=== PATIENT | female | born 1985 | race Caucasian/White ===

== ENCOUNTER 2023-01-25 09:23 | Outpatient (AMB) | payer OTHER, SELFPAY ==
[2023-01-25 09:41] VITALS: BP 122/80; PULSE 77; TEMP 36.4; O2SAT 97
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
== END 2023-01-25 10:32 | disposition home or self-care (01) ==
PROVIDERS: PCP Internal Medicine; Visit Provider Physician Assistant Medical
DX: S13.4XXA Sprain of ligaments of cervical spine, initial encounter (principal); S16.1XXA Strain of muscle, fascia and tendon at neck level, initial encounter; S39.012A Strain of muscle, fascia and tendon of lower back, initial encounter
CPT/HCPCS: 99213

== ENCOUNTER 2024-03-09 09:45 | Outpatient (AMB) | payer OTHER, SELFPAY ==
[2024-03-09 09:46] VITALS: BP 122/84; PULSE 89; O2SAT 99; BMI 37.7
--- NOTE | 2024-03-09 09:46 | A.OFFPC_ITS ---
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 Accompanied by: Self / Same As Patient Allergies No Known Allergies Allergy (Verified 03/10/24 05:30) Medication List - Last Reconciled 03/10/24 by Dov Caldera MD lidocaine 5% 2 patches topical DAILY meloxicam 15 mg PO DAILY pantoprazole 40 mg PO DAILY Tobacco use date assessed: 03/09/24 Dental Screening Dental Screen Date: 03/09/24 Did you have a dental visit in the last 12 months?: No Did you have a dental problem in the last 6 months where you did not have access to dental care?: No Was dental information given to patient?: No HPI PE HPI Details 38-year-old female presents to the [facility] e requesting an annual physical. Patient has issues with obesity, which is causing baseline anxiety. Her weight fluctuates due to her eating habits. Not exercising. 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 [facility] Medical History Class 2 severe obesity with body mass index (BMI) of 35 to 39.9 with serious comorbidity Family History Mother Hypertension Maternal Grandfather Lung cancer Social History Household Members: Family Housing: House Alcohol intake: current Alcohol intake frequency: other Alcohol type: wine Patient Tobacco Use Status: Never used Tobacco Tobacco use type: Cigarette e-Cigarette/Vaping Use: Never Used Substance Use Type: Marijuana service: No Current occupational status: employed Current occupational exposures/hazards: No Cognitive needs: No Hearing needs: No Vision needs: No Questionnaire PHQ-9 Over the last 2 weeks, how often have you been bothered by any of the following problems? 1. Little interest or pleasure in doing things: not at all 2. Feeling down, depressed, or hopeless: several days 3. Trouble falling or staying asleep, or sleeping too much: not at all 4. Feeling tired or having little energy: not at all 5. Poor appetite or overeating: not at all 6. Feeling bad about yourself - or that you are a failure or have let yourself or your family down: not at all 7. Trouble concentrating on things, such as reading the newspaper or watching television: not at all 8. Moving or speaking so slowly that other people could have noticed. Or the opposite - being so fidgety or restless that you have been moving around a lot more than usual: not at all 9. Thoughts that you would be better off or of hurting yourself in some way: not at all Total score: 1 Depression Screening Interpretation: Negative Depression Screening Done: Yes 49488 - PHQ-9 Billing: Yes Source: Developed by Drs. Haresh Singh, Anne Wiley, Christopher Nix and colleagues, with an educational tom from [employer]. Thrive Questionnaire Date Thrive assessed: 03/09/24 I am a: Patient What is your living situation today?: I have a steady place to live Within the past 12 months, did the food you bought not last and you didn't have the money to get more?: Never true Within the past 12 months, did you worry whether your food would run out before you got money to buy more?: Never true Do you have trouble paying for medicines?: No Do you have trouble getting transportation to medical appointments?: No Do you have trouble paying your heating and electricity bill?: No Do you have trouble taking care of your child, family member or friend?: No Do you have trouble with day-to-day activities such as bathing, preparing meals, shopping, managing finances, etc.?: No Are you currently unemployed and looking for a job?: No Are you interested in more education?: No Please select the resources that you would like help with: None Currently or been in a relationship where the following occur: No concerns reported THRIVE Score: 0 AUDIT C Alcohol Use Questionnaire (AUDIT-C) 1. How often do you have a drink containing alcohol?: Monthly or less 2. How many drinks containing alcohol do you have on a typical day when you are drinking?: 1 or 2 3. How often do you have six or more drinks on one occasion?: Never Total Score: 1 KATHERINE-7 AMB Questionnaire KATHERINE-7 Date KATHERINE - 7 assessed: 03/09/24 Feeling nervous, anxious, or on edge: 1 = Several days Not being able to stop or control worryin = Several days Worrying too much about different things: 1 = Several days Trouble relaxin = Several days Being so restless that it is hard to sit still: 1 = Several days Becoming easily annoyed or irritable: 1 = Several days Feeling afraid as if something awful might happen: 0 = Not at all Total KATHERINE-7 score (0-4 normal; 5-9 mild; 10-14 moderate; 15-21 severe): 6 Source: Developed by Drs. Haresh Singh, Anne Wiley, Christopher Nix and colleagues, with an educational tom from [employer]. KATHERINE-7 Assessment Billing KATHERINE-7 Assessment Tool: KATHERINE-7 Assessment 39555 Physical exam (Primary Care) Vital Signs: Last Vital Signs Pulse 89 03/09/24 09:46 BP 122/84 03/09/24 09:46 Pulse Ox 99 03/09/24 09:46 Oxygen Delivery Method Room Air 03/09/24 09:46 Care Plan Goal for BP management: Blood pressure is in range. BMI result Body Mass Index 37.7 BMI Assessment/Plan discussion: High (1 lb per week weight loss suggested.) BMI High, discussed plan: lifestyle, weight reduction and dietary Tobacco/Smoking Status: Tobacco use Status Tobacco use date assessed 03/09/24 03/09/24 09:54 Patient Tobacco Use Status Never used Tobacco 03/09/24 09:54 Tobacco use type Cigarette 03/09/24 09:54 e-Cigarette/Vaping Use Never Used 03/09/24 09:54 PHQ-9: PHQ-9 Score PHQ-9: Total score 1 03/09/24 10:29 Depression Screening Interpretation: Negative Thrive Assessment: Date of Thrive Assessment Date Thrive assessed 03/09/24 03/09/24 09:54 Currently or been in a relationship where the following occur: No concerns reported Const General: cooperative and healthy appearing Nutritional Appearance: well nourished Orientation/consciousness: patient oriented x3 Limitations: no limitations HENMT Head: Yes normal to inspection Eyes General: appearance normal, both eyes and all related structures Neck Neck: Yes normal visual inspection Chest Chest palpation & inspection: normal palpation of entire chest wall Resp Effort & Inspection: normal respiratory effort Neuro General: patient oriented x3 Assessment and Plan Assessment & Plan (1) Migraines: Code(s): G43.909 - Migraine, unspecified, not intractable, without status migrainosus Plan: Meloxicam called in. If headache symptoms do not subside with meloxicam, triptans will be considered. (2) Physical exam, annual: Code(s): Z00.00 - Encounter for general adult medical examination without abnormal findings Plan: Blood work has been ordered. Will call the results. (3) Class 2 severe obesity with body mass index (BMI) of 35 to 39.9 with serious comorbidity: Code(s): E66.01 - Morbid (severe) obesity due to excess calories Plan: Patient was counseled on the importance of regular exercise, low-fat diet. She was advised to restrict the amount of carbohydrates she is consuming. Medications: New meloxicam 15 mg PO DAILY 14 tabs 0RF Coding Level of Care Code Est Pt Prev Care 18-39y(46421) Diagnoses Migraines G43.909 Physical exam, annual Z00.00 Class 2 severe obesity with body mass index (BMI) of 35 to 39.9 with serious comorbidity E66.01 Additional Codes KATHERINE-7 Assessment Billing - KATHERINE-7 Assessment Tool: KATHERINE-7 Assessment [id number] ([id number])
== END 2024-03-09 10:19 | disposition home or self-care (01) ==
PROVIDERS: PCP Internal Medicine; Visit Provider Internal Medicine
DX: Z00.00 Encounter for general adult medical examination without abnormal findings (principal); G43.909 Migraine, unspecified, not intractable, without status migrainosus; E66.01 Morbid (severe) obesity due to excess calories; Z68.37 Body mass index [BMI] 37.0-37.9, adult
CPT/HCPCS: 99395

== ENCOUNTER 2024-04-02 08:40 | Outpatient (REF) | payer OTHER, SELFPAY ==
[2024-04-02 09:22] LABS: Hematocrit 41.3 % (37.0-47.0); Hemoglobin 13.7 g/dl (12.0-16.0); Mean Corpuscular HGB Conc 33.2 g/dl (31.0-35.0); Mean Corpuscular Hemoglobin 28.8 pg (27.0-33.0); Mean Corpuscular Volume 86.9 fL (80.0-98.0); Mean Platelet Volume 11.8 fL (9.4-12.3); Platelet Count 207 X10*3/uL (160-400); Red Blood Count 4.75 X10*6/uL (4.20-5.50); Red Cell Distribution Width 12.3 % (11.0-16.0); White Blood Count 8.2 X10*3/uL (4.8-10.8)
[2024-04-02 09:50] LABS: Appearance Urine Clear; Color Urine Yellow; Glucose Urine UA Negative (Negative); Leukocyte Esterase Urine Trace (Negative); Nitrite Urine Negative (Negative); Specific Gravity - Urine 1.025 (1.005-1.025); UMIC TRIGGER UA YES; Urine Blood Negative (Negative); Urine Ketones Negative (Negative); Urine Protein Trace mg/dL (Neg-Trace)
[2024-04-02 10:02] LABS: Erythrocyte Sedimentation Rate 8 MM/HR (0-20)
[2024-04-02 10:09] LABS: Bacteria Urine 1+ (None Seen); Hyaline Casts Urine 0-2 /LPF (0-2); RBC Urine 0-2 /HPF (0-2); WBC Urine 0-5 /HPF (0-5)
[2024-04-02 10:19] LABS: Alanine Aminotransferase 15 U/L (0-31); Albumin Level 4.4 g/dL (3.5-5.0); Alkaline Phosphatase 65 U/L (39-117); Anion Gap 11 (12-20); Aspartate Amino Transferase 12 U/L (5-31); Bilirubin Direct 0.2 mg/dL (0.0-0.5); Bilirubin Total 0.8 mg/dL (0.0-1.0); Blood Urea Nitrogen 12 mg/dL (9-16); Calcium 9.2 mg/dL (8.4-10.2); Carbon Dioxide 26 mmol/L (22-29); Chloride 107 mmol/L (96-108); Cholesterol 188 mg/dL (<200); Estimated Glomerular Filt Rate > 60; Glucose Random 99 mg/dL (60-115); HDL Cholesterol 35 mg/dL (>40); LDL Cholesterol Calculated 106 mg/dL (<100); Potassium 3.8 mmol/L (3.3-5.1); Sodium 140 mmol/L (135-145); Total Protein 7.8 g/dL (6.5-8.0); Triglycerides 238 mg/dL (<150)
[2024-04-02 10:39] LABS: Thyroid Stimulating Hormone 1.08 uIU/mL (0.32-4.0)
== END 2024-04-02 08:41 | disposition home or self-care (01) ==
LOC: HO.LAB 08:40
PROVIDERS: PCP Internal Medicine; Visit Provider Internal Medicine
DX: K21.9 Gastro-esophageal reflux disease without esophagitis (principal); G43.909 Migraine, unspecified, not intractable, without status migrainosus
CPT/HCPCS: 36415; 80048; 80061; 80076; 81001; 84443; 85027; 85652

== ENCOUNTER 2024-10-15 13:08 | Outpatient (AMB) | payer OTHER, SELFPAY ==
--- NOTE | 2024-10-15 13:23 | MHC.PC.OV ---
Vital Signs 10/15/24 13:27 Height 5 ft 7 in Weight 251 lb 4 oz BMI 39.3 BP 132/86 Blood Pressure Location Lt brachial Position Sitting Pulse 83 Pulse Source Pulse Oximeter Temp 97.1 F Temp Source Temporal Artery Scan Pulse Oximetry (%) 94 Oxygen Delivery Method Room Air Intake Visit Reasons: pain underneath ribs Intake Note: Patient is here to follow up on Pain underneath left ribs area. 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: Not Required per policy Accompanied by: Self / Same As Patient Allergies No Known Allergies Allergy (Verified 10/15/24 13:53) Medication List - Last Reconciled 10/15/24 by Patricia Huggins PA-C amoxicillin-pot clavulanate 875-125 mg 1 tab PO BID 10 days lidocaine 5% 2 patches topical DAILY meloxicam 15 mg PO DAILY metformin ER 500 mg PO DAILY pantoprazole 40 mg PO DAILY prednisone 40 mg (2 x 20 mg) PO DAILY 5 days sumatriptan succinate (Imitrex) take 1 tab at onset of headache; if no relief may repeat 1 tab after at least 2 hrs; max = 4 tabs/24 hr PO Tobacco use date assessed: 10/15/24 Dental Screening Dental Screen Date: 10/15/24 Did you have a dental visit in the last 12 months?: No Did you have a dental problem in the last 6 months where you did not have access to dental care?: No Was dental information given to patient?: No PFSH Medical History Chest wall pain Headache Abdominal pain Class 2 severe obesity with body mass index (BMI) of 35 to 39.9 with serious comorbidity Surgical History No pertinent past surgical history Family History Mother Hypertension Maternal Grandfather Lung cancer Social History Household Members: Family Housing: House Alcohol intake: current Alcohol intake frequency: other Alcohol type: wine Patient Tobacco Use Status: Never used Tobacco Tobacco use type: Cigarette e-Cigarette/Vaping Use: Never Used Second Hand Smoke Exposure: Yes Substance Use Type: Marijuana service: No Current occupational status: employed Current occupational exposures/hazards: No Cognitive needs: No Hearing needs: No Vision needs: No Questionnaire PHQ-9 Over the last 2 weeks, how often have you been bothered by any of the following problems? 1. Little interest or pleasure in doing things: not at all 2. Feeling down, depressed, or hopeless: not at all 3. Trouble falling or staying asleep, or sleeping too much: not at all 4. Feeling tired or having little energy: not at all 5. Poor appetite or overeating: not at all 6. Feeling bad about yourself - or that you are a failure or have let yourself or your family down: not at all 7. Trouble concentrating on things, such as reading the newspaper or watching television: not at all 8. Moving or speaking so slowly that other people could have noticed. Or the opposite - being so fidgety or restless that you have been moving around a lot more than usual: not at all 9. Thoughts that you would be better off or of hurting yourself in some way: not at all Total score: 0 Depression Screening Interpretation: Negative Depression Screening Done: Yes 35558 - PHQ-9 Billing: Yes Source: Developed by Drs. Haresh Singh, Anne Wiley, Christopher Nix and colleagues, with an educational tom from [employer]. Thrive Questionnaire Date Thrive assessed: 10/15/24 I am a: Patient What is your living situation today?: I have a steady place to live Within the past 12 months, did the food you bought not last and you didn't have the money to get more?: Never true Within the past 12 months, did you worry whether your food would run out before you got money to buy more?: Never true Do you have trouble paying for medicines?: No Do you have trouble getting transportation to medical appointments?: No Do you have trouble paying your heating and electricity bill?: No Do you have trouble taking care of your child, family member or friend?: No Do you have trouble with day-to-day activities such as bathing, preparing meals, shopping, managing finances, etc.?: No Are you currently unemployed and looking for a job?: No Are you interested in more education?: No Please select the resources that you would like help with: None Currently or been in a relationship where the following occur: No concerns reported THRIVE Score: 0 AUDIT C Alcohol Use Questionnaire (AUDIT-C) 1. How often do you have a drink containing alcohol?: Monthly or less 2. How many drinks containing alcohol do you have on a typical day when you are drinking?: 1 or 2 Total Score: 1 Score Reviewed/Action Taken: No KATHERINE-7 AMB Questionnaire KATHERINE-7 Date KATHERINE - 7 assessed: 10/15/24 Feeling nervous, anxious, or on edge: 0 = Not at all Not being able to stop or control worryin = Not at all Worrying too much about different things: 0 = Not at all Trouble relaxin = Not at all Being so restless that it is hard to sit still: 0 = Not at all Becoming easily annoyed or irritable: 0 = Not at all Feeling afraid as if something awful might happen: 0 = Not at all Total KATHERINE-7 score (0-4 normal; 5-9 mild; 10-14 moderate; 15-21 severe): 0 Source: Developed by Drs. Haresh Singh, Anen Wiley, Christopher Nix and colleagues, with an educational tom from [employer]. KATHERINE-7 Assessment Billing KATHERINE-7 Assessment Tool: KATHERINE-7 Assessment 89519 Physical exam (Primary Care) Vital Signs: Last Vital Signs Temp 97.1 F 10/15/24 13:27 Pulse 83 10/15/24 13:27 BP 132/86 10/15/24 13:27 Pulse Ox 94 10/15/24 13:27 Oxygen Delivery Method Room Air 10/15/24 13:27 Care Plan Goal for BP management: <130/80 at Goal BMI result Body Mass Index 39.3 BMI Assessment/Plan discussion: High BMI High, discussed plan: lifestyle, weight reduction, dietary, physical activity and alcohol moderation Tobacco/Smoking Status: Tobacco use Status Tobacco use date assessed 10/15/24 10/15/24 13:32 Patient Tobacco Use Status Never used Tobacco 10/15/24 13:24 Tobacco use type Cigarette 10/15/24 13:24 e-Cigarette/Vaping Use Never Used 10/15/24 13:24 PHQ-9: PHQ-9 Score PHQ-9: Total score 0 10/15/24 13:32 Depression Screening Interpretation: Negative Thrive Assessment: Date of Thrive Assessment Date Thrive assessed 10/15/24 10/15/24 13:32 Currently or been in a relationship where the following occur: No concerns reported Coding Level of Care Code Est Pt Level 4 (81105) Complex EM visit Add On G2211 Diagnoses Abdominal pain R10.9 Chest wall pain R07.89 Migraines G43.909 Class 2 severe obesity with body mass index (BMI) of 35 to 39.9 with serious comorbidity E66.01 Additional Codes PHQ-9 - 23020 - PHQ-9 Billing: Yes ([id number]) KATHERINE-7 Assessment Billing - KATHERINE-7 Assessment Tool: KATHERINE-7 Assessment 83631 ([id number]) Assessment & Plan Assessment & Plan (1) Abdominal pain: Code(s): R10.9 - Unspecified abdominal pain Category: Medical Plan: Initiate with blood work, abdominal ultrasound, and CT scan ordered at this time. (2) Chest wall pain: Code(s): R07.89 - Other chest pain Category: Medical Plan: Will obtain x-ray of ribs and PA chest along with ultrasound of abdomen and CT scan abdomen pelvis with IV contrast. Condition is stable continue to monitor. (3) Migraines: Code(s): G43.909 - Migraine, unspecified, not intractable, without status migrainosus Category: Medical Plan: Blood work will include headache pattern diagnostic aiding with Sumatriptan prescription, along with neurology referral. (4) Class 2 severe obesity with body mass index (BMI) of 35 to 39.9 with serious comorbidity: Code(s): E66.01 - Morbid (severe) obesity due to excess calories Category: Medical Plan: Metformin XR guideline initiation with dosage increments planned and insurance inquiry interventions prepared. Plan Plan Patient was informed and verbally consented to the use of an ambient scribe for clinic note documentation during this visit. 1. Sinusitis Treatment foregrounded through Augmentin, highlighted Sudafed limitations and confirmed rebound headache reduction plans. 2. Hemorrhoids Monitoring circumstance, indicated need for greater assessment based on persistent outcomes. 3. Weight Management Metformin XR guideline initiation with dosage increments planned and insurance inquiry interventions prepared. 4. Left Upper Quadrant Pain Initiate with blood work, abdominal ultrasound, and CT scan ordered at this time. 5. Migraine Headaches Blood work will include headache pattern diagnostic aiding with Sumatriptan prescription, along with neurology referral. Discussion Notes We discussed the symptoms and likely causes of the left upper quadrant pain, with imaging intended to confirm diagnosis. Migraine management will involve Sumatriptan with preventive strategies against rebound headaches emphasized. Detailed sinusitis management with Augmentin was deliberated, while psoriasis reductions emphasized less Sudafed. We will explore Metformin for weight control post an affirming trial. We concluded with neurology referral prospects if shifts unproductive, procedural follow-ups ongoing dependent on test conclusions. Orders: Orders C Reactive Protein Today Z00.00 - Encounter for general adult medical examination without abnormal findings Magnesium Today Z00.00 - Encounter for general adult medical examination without abnormal findings Vitamin D 25-OH Total Today Z00.00 - Encounter for general adult medical examination without abnormal findings TSH reflex Free T4 Today Z00.00 - Encounter for general adult medical examination without abnormal findings Ur Preg Test Today R10.9 - Unspecified abdominal pain US abdomen complete Today R10.9 - Unspecified abdominal pain Complete Blood Count Auto Diff Today Z00.00 - Encounter for general adult medical examination without abnormal findings Comprehensive Met. Panel Today Z00.00 - Encounter for general adult medical examination without abnormal findings Erythrocyte Sedimentation Rate Today Z00.00 - Encounter for general adult medical examination without abnormal findings Liver Panel Today Z00.00 - Encounter for general adult medical examination without abnormal findings Hemoglobin A1c Today Z00.00 - Encounter for general adult medical examination without abnormal findings Vitamin B12 and Folate Today Z00.00 - Encounter for general adult medical examination without abnormal findings Lipase Today R10.9 - Unspecified abdominal pain UA CC w/rflx Micro + Cult Today R10.9 - Unspecified abdominal pain CT abdomen pelvis w IV con Today R10.9 - Unspecified abdominal pain XR ribs LT min 3V w CXR1V Today R07.89 - Other chest pain Referrals Neurology Referral R51.9 - Headache, unspecified Medications: New sumatriptan succinate (Imitrex) take 1 tab at onset of headache; if no relief may repeat 1 tab after at least 2 hrs; max = 4 tabs/24 hr PO 30 tabs 1RF metformin ER 500 mg PO DAILY 30 tabs 0RF amoxicillin-pot clavulanate 875-125 mg 1 tab PO BID 20 tabs 0RF 10 days prednisone 40 mg (2 x 20 mg) PO DAILY 10 tabs 0RF 5 days Patient Instructions: Patient Instructions - Follow up for blood work today. - Schedule and complete an ultrasound and CT scan of the abdomen as soon as available. - Begin Sumatriptan for headaches as instructed: one tablet at onset, may repeat if needed. - Use Augmentin as directed to manage sinusitis. - Avoid prolonged use of Sudafed to prevent rebound headaches. - Start Metformin XR for weight management. - Call or return if symptoms worsen or new symptoms emerge. - Follow up in one month to review progress and medication effectiveness. Scribe Plan - Not visible on output: History of Present Illness The patient is a 38-year-old female presenting with left rib cage/ left upper quadrant abdominal pain, migraine headaches, and sinusitis. Her left lower rib cage/upper quadrant pain worsens with certain positions and pressure, appearing four weeks ago and worsening since. She dismisses direct trauma or notable triggers, denies systemic symptoms, yet reports exacerbation by specific movement. The patient also admits to substantial, unexplained weight gain previously stable at an elevated weight. She details debilitating migraines precipitating nausea and requiring darkness. Recent attempts to mitigate sinus-related headaches with Sudafed Sinus led to potential medication-induced rebound headaches acknowledged during the visit. Social History - Employed at a [employer]. - Has children. - Consuming significant amounts of soda which may impact weight gain or health. Review of Systems - Gastrointestinal: Reports bloody stools, denies black stools. - Genitourinary: Denies blood in urine. - Neurological: Reports headache-induced nausea and vomiting. Physical Exam Appearance: Alert. Oriented X3. No acute distress. Head: Normal external exam. Normocephalic. Atraumatic. Eyes: Pupils are equal, round, and reactive to light. Extraocular movements intact. Conjunctiva and sclera normal. Eyelids normal. Throat: Pharynx normal. Uvula midline. Moist mucous membranes. Neck: Normal inspection. Neck supple. Full range of motion. Cardiovascular: Normal heart rate and rhythm. Respiratory: No respiratory distress. Painless inspiration. Abdomen: Tender in the left upper quadrant. Bowel sounds normal in all 4 quadrants. No distention noted. No organomegaly noted. No visible injury noted. Back: No costovertebral angle tenderness. Full range of motion noted. Skin: Skin warm and dry. Normal skin color. Normal skin turgor. No rashes/lesions/lacerations noted. Extremities: Extremities exhibit normal range of motion. Extremities nontender. Neuro: Oriented X 3. No motor deficit. No sensory deficit. Reflexes normal.
[2024-10-15 13:27] VITALS: BP 132/86; PULSE 83; TEMP 36.2; O2SAT 94; BMI 39.3
== END 2024-10-15 13:50 | disposition home or self-care (01) ==
LOC: HO.HMCH 13:08
PROVIDERS: PCP Internal Medicine; Visit Provider Physician Assistant Medical
DX: R10.9 Unspecified abdominal pain (principal); E66.01 Morbid (severe) obesity due to excess calories; Z68.39 Body mass index [BMI] 39.0-39.9, adult; R07.89 Other chest pain; G43.909 Migraine, unspecified, not intractable, without status migrainosus

== ENCOUNTER 2024-10-15 13:08 | Outpatient (REF) | payer OTHER, SELFPAY ==
--- NOTE | ~2024-10-15 | XR_ITS ---
EXAMINATION: XR RIBS, LEFT CLINICAL INFORMATION: R07.89 - Other chest pain COMPARISON: None available. TECHNIQUE: 3 views of the left ribs were obtained. FINDINGS: Lungs are clear. No consolidation, pneumothorax, or pleural effusion. The cardiomediastinal silhouette and pulmonary vasculature are normal. Osseous structures are unremarkable. Ribs are intact. No fractures are identified. XR/XR ribs LT min 3V w CXR1V IMPRESSION: Unremarkable examination. Electronically signed by: Evan Starks MD 10/15/2024 03:16 PM EDT RP
[2024-10-15 14:21] LABS: MANUAL DIFF FLAG NO
[2024-10-15 15:29] LABS: Basophils Absolute Auto 0.1 X10*3/uL (0.0-0.2); Basophils Percent Auto 0.7 % (0-2); Eosinophils Absolute Auto 0.3 X10*3/uL (0.0-0.4); Eosinophils Percent Auto 3.4 % (0-4); Hematocrit 38.1 % (37.0-47.0); Hemoglobin 12.7 g/dl (12.0-16.0); Imm Gran Abs Auto 0.02 X10*3/uL (0.00-0.03); Imm Gran Pct Auto 0.2 % (0.0-0.4); Lymphocytes Absolute Auto 2.9 X10*3/uL (1.2-4.9); Lymphocytes Percent Auto 35.5 % (20-40); Mean Corpuscular HGB Conc 33.3 g/dl (31.0-35.0); Mean Corpuscular Hemoglobin 28.7 pg (27.0-33.0); Mean Corpuscular Volume 86.2 fL (80.0-98.0); Mean Platelet Volume 10.9 fL (9.4-12.3); Monocytes Absolute Auto 0.4 X10*3/uL (0.1-1.2); Monocytes Percent Auto 5.4 % (2-11); Neutrophils Absolute Auto 4.5 x10*3/uL (2.0-8.3); Neutrophils Percent Auto 54.8 % (45-73); Platelet Count 272 X10*3/uL (160-400); Red Blood Count 4.42 X10*6/uL (4.20-5.50); Red Cell Distribution Width 12.4 % (11.0-16.0); White Blood Count 8.2 X10*3/uL (4.8-10.8)
[2024-10-15 15:31] LABS: Estimated Average Glucose 108 mg/dL; Hemoglobin A1c % 5.4 % (<6.0); Total Hemoglobin (HGBA1C) 3470.7437 umol/L
[2024-10-15 15:51] LABS: Appearance Urine Clear; Color Urine Yellow; Glucose Urine UA Negative (Negative); Leukocyte Esterase Urine Negative (Negative); Nitrite Urine Negative (Negative); PH 5.5 (5.0-9.0); Specific Gravity - Urine 1.015 (1.005-1.025); UMIC TRIGGER UACC YES; Urine Blood Trace (Negative); Urine Ketones Negative (Negative); Urine Protein Negative (Neg-Trace)
[2024-10-15 15:52] LABS: UPreg QC Valid YES; Urine Pregnancy NEGATIVE (NEGATIVE)
[2024-10-15 15:54] LABS: Bacteria Urine None Seen (None Seen); Hyaline Casts Urine 0-2 /LPF (0-2); RBC Urine 0-2 /HPF (0-2); Squamous Epithelial Cell Urine 0-2 /HPF (0-2); WBC Urine 0-5 /HPF (0-5)
[2024-10-15 16:04] LABS: Alanine Aminotransferase 24 U/L (0-31); Albumin Level 4.3 g/dL (3.5-5.0); Anion Gap 12 (12-20); Aspartate Amino Transferase 18 U/L (5-31); Bilirubin Direct 0.1 mg/dL (0.0-0.5); Bilirubin Total 0.3 mg/dL (0.0-1.0); Blood Urea Nitrogen 11 mg/dL (9-16); C Reactive Protein 0.22 mg/dL (< or = 0.50); Calcium 9.2 mg/dL (8.4-10.2); Carbon Dioxide 26 mmol/L (22-29); Chloride 106 mmol/L (96-108); Estimated Glomerular Filt Rate > 60; Glucose Random 73 mg/dL (60-115); Lipase 16 U/L (8-78); Potassium 3.6 mmol/L (3.3-5.1); Sodium 140 mmol/L (135-145); Total Protein 7.6 g/dL (6.5-8.0)
[2024-10-15 16:14] LABS: Alkaline Phosphatase 73 U/L (39-117)
[2024-10-15 16:23] LABS: Vitamin D 25-OH Total 21.6 ng/mL (>30)
[2024-10-15 16:30] LABS: Folate 13.5 ng/mL (> or = 4.0); Vitamin B12 354 pg/mL (200-900)
[2024-10-15 16:31] LABS: Erythrocyte Sedimentation Rate 10 MM/HR (0-20)
== END 2024-10-15 13:09 | disposition home or self-care (01) ==
LOC: HO.XRAY 13:08
PROVIDERS: PCP Internal Medicine; Visit Provider Physician Assistant Medical
DX: R10.9 Unspecified abdominal pain (principal); R07.89 Other chest pain; G43.909 Migraine, unspecified, not intractable, without status migrainosus; E66.01 Morbid (severe) obesity due to excess calories; Z68.39 Body mass index [BMI] 39.0-39.9, adult; Z00.00 Encounter for general adult medical examination without abnormal findings; Z13.1 Encounter for screening for diabetes mellitus
CPT/HCPCS: 36415; 71101; 80053; 81001; 81025; 82248; 82306; 82607; 82746; 83036; 83690; 83735; 84443; 85025; 85652; 86140; 96127

== ENCOUNTER → 2024-10-15 14:27 | Outpatient (BNV) | payer OTHER, SELFPAY | PROVIDERS: PCP Internal Medicine; Visit Provider Radiology Diagnostic Radiology | DX: R07.89 Other chest pain (principal) | CPT/HCPCS: 71101 ==

== ENCOUNTER 2024-10-16 11:03 | Outpatient (REF) | payer OTHER, SELFPAY ==
--- NOTE | ~2024-10-16 | US_ITS ---
CLINICAL HISTORY: R10.9 - Unspecified abdominal pain US abdomen complete with color Doppler Comparison: None Findings: The visualized pancreas, aorta, and inferior vena cava are unremarkable. Liver normal size and echotexture. Right lobe 18.0 cm length. No focal hepatic masses. Common duct 2.5 mm diameter. Physiologic distention of the gallbladder. No gallstones or sludge. No gallbladder wall thickening. No pericholecystic fluid. No sonographic Nguyen sign. Main portal vein antegrade. Right kidney normal size, 12.5 cm in length. Normal cortical width and echotexture. No solid or cystic renal masses. No nephrolithiasis or hydronephrosis. Left kidney normal, 9.3 cm in length. Normal cortical width and echotexture. No solid or cystic renal masses. No nephrolithiasis or hydronephrosis. Spleen measures 9.3 cm. No splenic masses. No ascites. No lymphadenopathy. Impression: 1. Normal abdominal ultrasound. This document has been electronically signed by: Jose Spicer MD on 10/16/2024 15:06:29
== END 2024-10-16 11:04 | disposition home or self-care (01) ==
LOC: HO.HMGCX 11:03
PROVIDERS: PCP Internal Medicine; Visit Provider Physician Assistant Medical
DX: R10.9 Unspecified abdominal pain (principal)
CPT/HCPCS: 76700

== ENCOUNTER → 2024-10-16 11:05 | Outpatient (BNV) | payer OTHER, SELFPAY | PROVIDERS: PCP Internal Medicine; Visit Provider Radiology Diagnostic Radiology | DX: R10.9 Unspecified abdominal pain (principal) | CPT/HCPCS: 76700 ==

== ENCOUNTER 2024-11-19 | Outpatient (REF) | payer OTHER, SELFPAY ==
--- NOTE | ~2024-11-19 | XR_ITS ---
EXAMINATION: XR ANKLE, LEFT CLINICAL INFORMATION: M25.572 - Pain in left ankle and joints of left foot COMPARISON: None available. TECHNIQUE: AP, lateral, and mortise views of the left ankle. FINDINGS: No fracture, dislocation, or suspicious bone lesion. Normal bone mineralization. Normal alignment. Ankle mortise is intact. The talar dome is normal. Joint spaces are preserved. No significant arthropathy. There is a moderate-sized plantar and tiny dorsal calcaneal spur. XR/XR ankle LT min 3V IMPRESSION: No acute findings left ankle. Electronically signed by: Evan Starks MD 11/19/2024 03:16 PM EDT
== END 2024-11-19 00:01 | disposition home or self-care (01) ==
LOC: HO.XRAY
PROVIDERS: PCP Internal Medicine; Visit Provider Physician Assistant Medical
DX: M25.572 Pain in left ankle and joints of left foot (principal)
CPT/HCPCS: 73610

== ENCOUNTER 2024-11-19 13:58 | Outpatient (AMB) | payer OTHER, SELFPAY ==
[2024-11-19 14:00] VITALS: BP 128/86; PULSE 96; TEMP 36.2; O2SAT 100; BMI 39.5
--- NOTE | 2024-11-19 14:00 | A.OFFPC_ITS ---
Vital Signs 11/19/24 14:00 Height 5 ft 7 in Weight 252 lb 2 oz BMI 39.5 BP 128/86 Blood Pressure Location Lt brachial Position Sitting Pulse 96 Pulse Source Pulse Oximeter Temp 97.1 F Temp Source Temporal Artery Scan Pulse Oximetry (%) 100 Oxygen Delivery Method Room Air Intake Visit Reasons: 1 month f/u Kinesiotherapist Required: No Accompanied by: Self / Same As Patient Allergies No Known Allergies Allergy (Verified 11/19/24 17:16) Medication List - Last Reconciled 11/19/24 by Patricia Huggins PA-C cetirizine (Zyrtec) 10 mg PO DAILY PRN cholecalciferol (vitamin D3) 25 mcg PO DAILY lidocaine 5% 2 patches topical DAILY meloxicam 15 mg PO DAILY metformin ER 500 mg PO DAILY pantoprazole 40 mg PO DAILY sumatriptan succinate (Imitrex) take 1 tab at onset of headache; if no relief may repeat 1 tab after at least 2 hrs; max = 4 tabs/24 hr PO tirzepatide (weight loss) (Zepbound) 2.5 mg (0.5 mL) subcut QWEEK Tobacco use date assessed: 10/15/24 Dental Screening Dental Screen Date: 10/15/24 HPI 1 month f/u HPI Details The patient is a 38-year-old female presenting with migraine headaches and weight management concerns. She reports recent migraine episodes with inadequate response to Imitrex, coupled with sinus fullness that may contribute to headaches. Treatment for sinusitis with prednisone and Augmentin was only partially effective. Chronic allergy medications are considered as Zyrtec or Claritin for managing sinus symptoms further. The patient also expresses concerns regarding ongoing weight gain despite prior metformin treatment and Mirena use, potentially contributing to her weight management challenges. Her weight history indicates a progressive increase over the past years, with a current weight of 251 lbs. Additional medical considerations include elevated cholesterol and triglycerides. Insurance coverage for potential weight loss interventions, including injections like Zepbound, is explored. Further issues include reported ankle pain aggravated by activity, with diagnostic imaging pending to assess potential ligamentous involvement, warranting possible orthopedic evaluation. Social History - Employment: Experiences job stress due to migraine-related absenteeism. - Exercise: Ankle pain limits activity; consideration of weight management was due in part to exercise challenges. - Family History: Mother, grandmother, a nd aunt have undergone bariatric surgery with mixed outcomes. - Insurance: Covers through a [employer] ar rangement; discussions around insurance approval for weight loss injections. [facility] Medical History (Updated 11/19/24 @ 17:21 by Patricia Huggins PA-C) Migraine aura occurring with and without headache Allergic rhinitis Left ankle pain Hypertriglyceridemia Hypercholesteremia Hyperlipidemia Vitamin D deficiency Chest wall pain Headache Abdominal pain Class 2 severe obesity with body mass index (BMI) of 35 to 39.9 with serious comorbidity Surgical History No pertinent past surgical history Family History Mother Hypertension Maternal Grandfather Lung cancer Social History Household Members: Family Housing: House Alcohol intake: current Alcohol intake frequency: other Alcohol type: wine Patient Tobacco Use Status: Never used Tobacco Tobacco use type: Cigarette e-Cigarette/Vaping Use: Never Used Second Hand Smoke Exposure: Yes Substance Use Type: Marijuana service: No Current occupational status: employed Current occupational exposures/hazards: No Cognitive needs: No Hearing needs: No Vision needs: No Questionnaire PHQ-9 Over the last 2 weeks, how often have you been bothered by any of the following problems? 1. Little interest or pleasure in doing things: not at all 2. Feeling down, depressed, or hopeless: not at all 3. Trouble falling or staying asleep, or sleeping too much: several days 4. Feeling tired or having little energy: more than half the days 5. Poor appetite or overeating: more than half the days 6. Feeling bad about yourself - or that you are a failure or have let yourself or your family down: not at all 7. Trouble concentrating on things, such as reading the newspaper or watching television: not at all 8. Moving or speaking so slowly that other people could have noticed. Or the opposite - being so fidgety or restless that you have been moving around a lot more than usual: not at all 9. Thoughts that you would be better off or of hurting yourself in some way: not at all Total score: 5 Depression Screening Interpretation: Positive Depression Screening Follow-up: Existing condition Depression Screening Done: Yes 21084 - PHQ-9 Billing: Yes Source: Developed by Drs. Haresh Singh, Anne Wiley, Christopher Nix and colleagues, with an educational tom from [employer]. Thrive Questionnaire Date Thrive assessed: 11/19/24 I am a: Patient What is your living situation today?: I have a steady place to live Within the past 12 months, did the food you bought not last and you didn't have the money to get more?: Never true Within the past 12 months, did you worry whether your food would run out before you got money to buy more?: Never true Do you have trouble paying for medicines?: No Do you have trouble getting transportation to medical appointments?: No Do you have trouble paying your heating and electricity bill?: No Do you have trouble taking care of your child, family member or friend?: No Do you have trouble with day-to-day activities such as bathing, preparing meals, shopping, managing finances, etc.?: No Are you currently unemployed and looking for a job?: No Are you interested in more education?: I choose not to answer this question Please select the resources that you would like help with: None Currently or been in a relationship where the following occur: No concerns reported THRIVE Score: 0 AUDIT C Alcohol Use Questionnaire (AUDIT-C) 1. How often do you have a drink containing alcohol?: Monthly or less 2. How many drinks containing alcohol do you have on a typical day when you are drinking?: 1 or 2 3. How often do you have six or more drinks on one occasion?: Less than monthly Total Score: 2 Score Reviewed/Action Taken: No KATHERINE-7 AMB Questionnaire KATHERINE-7 Date KATHERINE - 7 assessed: 11/19/24 Feeling nervous, anxious, or on edge: 1 = Several days Not being able to stop or control worryin = Not at all Worrying too much about different things: 1 = Several days Trouble relaxin = Several days Being so restless that it is hard to sit still: 1 = Several days Becoming easily annoyed or irritable: 1 = Several days Feeling afraid as if something awful might happen: 0 = Not at all Total KATHERINE-7 score (0-4 normal; 5-9 mild; 10-14 moderate; 15-21 severe): 5 Source: Developed by Drs. Haresh Singh, Anne Wiley, Christopher Nix and colleagues, with an educational tom from [employer]. KATHERINE-7 Assessment Billing KATHERINE-7 Assessment Tool: KATHERINE-7 Assessment 12036 Review of Systems Const Details: - Neurological: Reports migraines with associated nausea, vomiting, and sensitivity to light and sound. - Head and Neck: Reports sinus fullness and headaches related to potential sinusitis and allergies. - Musculoskeletal: Reports bilateral knee pain and left ankle pain, affecting mobility. - Gastrointestinal: Denies black or bloody stools. - Weight: Reports significant weight gain over recent years. - Endocrine: Denies history of diabetes, currently inconsistent with metformin use for weight management. Physical exam (Primary Care) Vital Signs: Last Vital Signs Temp 97.1 F 11/19/24 14:00 Pulse 96 11/19/24 14:00 BP 128/86 11/19/24 14:00 Pulse Ox 100 11/19/24 14:00 Oxygen Delivery Method Room Air 11/19/24 14:00 Care Plan Goal for BP management: <130/90 at Goal BMI result Body Mass Index 39.5 BMI Assessment/Plan discussion: High BMI High, discussed plan: lifestyle, weight reduction, dietary, physical activity, alcohol moderation and other Tobacco/Smoking Status: Tobacco use Status Tobacco use date assessed 10/15/24 11/19/24 14:01 Patient Tobacco Use Status Never used Tobacco 11/19/24 14:01 Tobacco use type Cigarette 11/19/24 14:01 e-Cigarette/Vaping Use Never Used 11/19/24 14:01 PHQ-9: PHQ-9 Score PHQ-9: Total score 5 11/19/24 15:11 Depression Screening Interpretation: Positive Depression Screening Follow-up: Existing condition Thrive Assessment: Date of Thrive Assessment Date Thrive assessed 11/19/24 11/19/24 14:01 Currently or been in a relationship where the following occur: No concerns reported Const Other: Appearance: Alert. Oriented X3. No acute distress. Head: Normal external exam. Normocephalic. Atraumatic. Eyes: Pupils are equal, round, and reactive to light. Extraocular movements intact. Conjunctiva and sclera normal. Eyelids normal. Throat: Pharynx normal. Uvula midline. Moist mucous membranes. Neck: Normal inspection. Neck supple. Full range of motion. Cardiovascular: Normal heart rate and rhythm. Respiratory: No respiratory distress. Painless inspiration. Back: Full range of motion noted. Skin: Skin warm and dry. Normal skin color. Normal skin turgor. No rashes/lesions/lacerations noted. Extremities: No lower extremity edema. Left ankle pain noted, especially with certain movements patient mild soft tissue swelling and tenderness palpation to the left lateral lower malleolus and left medial aspect of the ankle. No obvious deformities. Achilles tendon is intact not ruptured. Neuro: Oriented X 3. No motor deficit. No sensory deficit. Reflexes normal. Patient has a normal neuro exam. Normal steady gait. Chronic migraines reported, with associated nausea and vomiting. Results Reviewed Results Reviewed: - Tests and Diagnostics: - Previous X-rays and ultrasounds normal. - CAT scan is scheduled for December 17 to further evaluate sinus issues and ankle pain. Coding Level of Care Code Est Pt Level 4 (61437) Complex EM visit Add On G2211 Diagnoses Class 2 severe obesity with body mass index (BMI) of 35 to 39.9 with serious comorbidity E66.01 Hyperlipidemia E78.5 Hypercholesteremia E78.00 Hypertriglyceridemia E78.1 Allergic rhinitis J30.9 Migraine aura occurring with and without headache G43.109 Left ankle pain M25.572 Additional Codes KATHERINE-7 Assessment Billing - KATHERINE-7 Assessment Tool: KATHERINE-7 Assessment 37424 ([id number]) PHQ-9 - 72263 - PHQ-9 Billing: Yes ([id number]) Time Spent (min) 45 Assessment & Plan Assessment & Plan (1) Class 2 severe obesity with body mass index (BMI) of 35 to 39.9 with serious comorbidity: Code(s): E66.01 - Morbid (severe) obesity due to excess calories Category: Medical Plan: Emphasize medication adherence and explore insurance-backed interventions such as injectable therapies. Condition is chronic and stable continue to monitor. (2) Hyperlipidemia: Code(s): E78.5 - Hyperlipidemia, unspecified Category: Medical Plan: Monitor lipid profile with lifestyle modifications to support weight management plan. Condition is chronic and stable continue to monitor. (3) Hypercholesteremia: Code(s): E78.00 - Pure hypercholesterolemia, unspecified Category: Medical Plan: Monitor lipid profile with lifestyle modifications to support weight management plan. Condition is chronic and stable continue to monitor. (4) Hypertriglyceridemia: Code(s): E78.1 - Pure hyperglyceridemia Category: Medical Plan: Monitor lipid profile with lifestyle modifications to support weight management plan. Condition is chronic and stable continue to monitor. (5) Allergic rhinitis: Code(s): J30.9 - Allergic rhinitis, unspecified Category: Medical Plan: Introduce Zyrtec or Claritin D with anticipation to reduce symptom burden. Condition is chronic and stable continue to monitor. (6) Migraine aura occurring with and without headache: Code(s): G43.109 - Migraine with aura, not intractable, without status migrainosus Category: Medical Plan: Continue current migraine management with ongoing neurology evaluation and trial of allergy medication for associated symptoms. Condition is chronic and stable continue to monitor. (7) Left ankle pain: Code(s): M25.572 - Pain in left ankle and joints of left foot Category: Medical Plan: Await further diagnostic imaging and consider orthopedic referral depending on results. Condition is stable will continue to monitor. Plan Plan Patient was informed and verbally consented to the use of an ambient scribe for clinic note documentation during this visit. 1. Migraine Continue current migraine management with ongoing neurology evaluation and trial of allergy medication for associated symptoms. 2. Sinusitis Initiate allergy medication to manage symptoms; upcoming diagnostic scan may guide further treatment. 3. Allergic Rhinitis Introduce Zyrtec or Claritin D with anticipation to reduce symptom burden. 4. Obesity Emphasize medication adherence and explore insurance-backed interventions such as injectable therapies. 5. Ankle Pain Await further diagnostic imaging and consider orthopedic referral depending on results. 6. Elevated Cholesterol Monitor lipid profile with lifestyle modifications to support weight management plan. 7. Elevated Triglycerides Continue surveillance and integrate dietary management focusing on lifestyle changes. 8. Knee Pain Monitor with imaging and intervention contingent on pain progression and initial response to weight reduction strategies. I discussed with the patient her ongoing migraine episodes and the association with sinus issues, recommending the use of allergy medications as a potential adjunct therapy. The plan includes following up with neurology, and a CT scan for further investigation. In addition, we discussed the management of her weight through adherence to metformin and pursuit of potential insurance coverage for Wegovy injections. The risks and benefits of injectable weight loss treatments over surgical options were discussed in detail. I have also recommended monitoring her ankle and knee discomfort and emphasized the importance of imaging to discern the appropriate management approach. The importance of lifestyle modifications, particularly regarding diet and exercise, we recognized, considering her elevated cholesterol and triglycerides and ongoing weight maintenance goals. Orders: Orders XR ankle LT min 3V Today M25.572 - Pain in left ankle and joints of left foot Medications: New cetirizine (Zyrtec) 10 mg PO DAILY PRN 90 tabs 1RF allergy symptoms tirzepatide (weight loss) (Zepbound) for 4 weeks 2.5 mg (0.5 mL) subcut QWEEK 2 mL 0RF E66.01 - Morbid (severe) obesity due to excess calories, E78.00 - Pure hypercholesterolemia, unspecified, E78.1 - Pure hyperglyceridemia, E78.5 - Hyperlipidemia, unspecified Patient Instructions: - Continue taking prescribed medications, including Imitrex and metformin. - Try Zyrtec or Claritin D once daily for allergies and sinus congestion. - Follow up with the neurology clinic on your scheduled appointment in December. - Schedule to complete a CAT scan on December 17 for further assessment. - Monitor weight management and discuss further options, including injections with your insurance. - Adhere strictly to lifestyle recommendations focused on diet and exercise. - Return for a follow-up in three months to reassess symptoms and treatment effectiveness.
== END 2024-11-19 14:39 | disposition home or self-care (01) ==
LOC: HO.HMCH 13:58
PROVIDERS: PCP Internal Medicine; Visit Provider Physician Assistant Medical
DX: E78.5 Hyperlipidemia, unspecified (principal); E66.01 Morbid (severe) obesity due to excess calories; Z68.39 Body mass index [BMI] 39.0-39.9, adult; E78.00 Pure hypercholesterolemia, unspecified; E78.1 Pure hyperglyceridemia; J30.9 Allergic rhinitis, unspecified; G43.109 Migraine with aura, not intractable, without status migrainosus; M25.572 Pain in left ankle and joints of left foot

== ENCOUNTER → 2024-11-19 13:58 | Outpatient (BNVA) | payer OTHER, SELFPAY | PROVIDERS: PCP Internal Medicine; Visit Provider Physician Assistant Medical | DX: E66.01 Morbid (severe) obesity due to excess calories (principal); Z68.39 Body mass index [BMI] 39.0-39.9, adult; E78.00 Pure hypercholesterolemia, unspecified; E78.1 Pure hyperglyceridemia; J30.9 Allergic rhinitis, unspecified; G43.109 Migraine with aura, not intractable, without status migrainosus; M25.572 Pain in left ankle and joints of left foot | CPT/HCPCS: 96127 ==

== ENCOUNTER → 2024-11-19 14:59 | Outpatient (BNV) | payer OTHER, SELFPAY | PROVIDERS: PCP Internal Medicine; Visit Provider Radiology Diagnostic Radiology | DX: M25.572 Pain in left ankle and joints of left foot (principal) | CPT/HCPCS: 73610 ==

== ENCOUNTER 2024-12-04 10:43 | Outpatient (REF) | payer OTHER, SELFPAY ==
--- NOTE | ~2024-12-04 | CT_ITS ---
EXAMINATION: CT ABDOMEN AND PELVIS WITH CONTRAST CLINICAL INFORMATION: Upper abdominal pain involving left upper quadrant, left flank, and on to the left rib cage. COMPARISON: None available. TECHNIQUE: Multidetector volumetric images were obtained from the superior aspect of the liver through the pubic symphysis following administration 85 mL of Omnipaque 350 intravenous contrast. Sagittal and coronal reformatted images were obtained on the technologist's workstation. Oral contrast: No This CT examination was performed using dose optimization techniques as appropriate, variously including the following: *Automated exposure control *Adjustment of mA and/or kV according to patient size (this includes techniques or standardized protocols for targeted exams where dose is matched to indication/reason for exam; i.e. extremities or head) *Use of iterative reconstruction technique FINDINGS: LUNG BASES: The visualized lung bases are unremarkable. LIVER, GALLBLADDER, AND BILIARY TREE: Liver demonstrates normal size and contour. There is diffuse fatty infiltration. No focal liver lesion. No biliary duct dilatation. The gallbladder is unremarkable with no evidence of radiopaque gallstones, gallbladder wall thickening, or obvious pericholecystic inflammatory changes. PANCREAS: Unremarkable. SPLEEN: Unremarkable. ADRENAL GLANDS: Unremarkable. KIDNEYS AND URETERS: The kidneys are normal in size, shape, and attenuation. No hydronephrosis, hydroureter, or calculi seen. No perinephric stranding. There is a simple upper pole cyst in the left kidney measuring 2.9 cm. BLADDER: Unremarkable. GASTROINTESTINAL TRACT: Normal appendix. The colon demonstrate mild wall thickening and hyperemia of the distal transverse, splenic flexure, descending, and sigmoid aspects. Mild associated hyperemia of the colonic mesentery. The right hemicolon appears normal. The small bowel is normal in caliber and course without evidence of inflammatory change. The GE junction, stomach, and duodenum appear normal. No definite rectal involvement. ABDOMINAL WALL: No significant hernia is appreciated. LYMPH NODES: Normal. VASCULAR: Unremarkable. PELVIC VISCERA: The uterus and adnexa are unremarkable. IUD appears appropriately situated within the endometrium. OSSEOUS STRUCTURES: No suspicious lytic or blastic bone lesions. CT/CT abdomen pelvis w IV con IMPRESSION: 1. Findings suspicious for mild left-sided colitis. Correlate for signs and symptoms of colitis. 2. Mild diffuse fatty infiltration of the liver. 3. Simple cyst in the upper pole of the left kidney. Kidneys otherwise normal. Electronically signed by: Evan Starks MD 12/04/2024 12:05 PM EDT RP
[2024-12-04] MEDS: iohexoL 350 MG/ML 100 ML INFUS..BTL IV (11:52)
== END 2024-12-04 10:44 | disposition home or self-care (01) ==
LOC: HO.CT 10:43
PROVIDERS: PCP Internal Medicine; Visit Provider Physician Assistant Medical
DX: R10.9 Unspecified abdominal pain (principal)
CPT/HCPCS: 74177; Q9967

== ENCOUNTER → 2024-12-04 10:46 | Outpatient (BNV) | payer OTHER, SELFPAY | PROVIDERS: PCP Internal Medicine; Visit Provider Radiology Diagnostic Radiology | DX: N28.1 Cyst of kidney, acquired (principal) | CPT/HCPCS: 74177 ==

== ENCOUNTER 2025-01-06 14:42 | Outpatient (AMB) | payer OTHER, SELFPAY ==
[2025-01-06 14:59] VITALS: BP 130/72; PULSE 102; O2SAT 97; BMI 38.4
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
== END 2025-01-06 16:18 | disposition home or self-care (01) ==
LOC: HO.HSMS 14:43
PROVIDERS: PCP Internal Medicine; Visit Provider Nurse Practitioner Family
DX: R51.9 Headache, unspecified (principal); R06.83 Snoring; G43.709 Chronic migraine without aura, not intractable, without status migrainosus; G25.81 Restless legs syndrome; G47.9 Sleep disorder, unspecified
CPT/HCPCS: 99204

== ENCOUNTER 2025-01-12 18:53 | Outpatient (REF) | payer OTHER, SELFPAY | END 2025-01-12 18:54 | disposition home or self-care (01) | LOC: HO.MRI 18:53 | PROVIDERS: PCP Internal Medicine; Visit Provider Nurse Practitioner Family | DX: Z13.89 Encounter for screening for other disorder (principal) ==

== ENCOUNTER → 2025-01-27 13:41 | Outpatient (BNV) | payer OTHER, SELFPAY | PROVIDERS: PCP Internal Medicine; Visit Provider Radiology Diagnostic Radiology | DX: G43.709 Chronic migraine without aura, not intractable, without status migrainosus (principal) | CPT/HCPCS: 70553 ==

== ENCOUNTER 2025-01-27 13:42 | Outpatient (REF) | payer OTHER, SELFPAY ==
--- NOTE | ~2025-01-27 | MR_ITS ---
EXAMINATION: MR BRAIN WITHOUT AND WITH CONTRAST CLINICAL INFORMATION: Migraines. COMPARISON: None available. TECHNIQUE: Multiplanar, multisequence MRI of the brain was obtained before and after the intravenous administration of 10.0 mL gadolinium based (Gadavist) without reported immediate complications. FINDINGS: Patient's motion artifact. No restricted diffusion. No acute intracranial hemorrhage, mass effect, midline shift, hydrocephalus or herniation.. Almeida-white matter differentiation is normal. Asymmetric prominent vascular structure in the posterior left lateral perimesencephalic cistern and extending into the left internal cerebral vein from the left basilar vein. Asymmetric prominent vascular structure in the right frontal temporal region just posterior to the sylvian fissure. No abnormal enhancing mass in the intra-axial or the extra-axial compartment of the cranium. The flow-void signal within the main cerebral vessels is normal. Slight asymmetric prominent left transverse and sigmoid sinus and left internal jugular bulb. Craniocervical junction demonstrates a low position of the cerebellar tonsils. The sellar/suprasellar region demonstrated no signal abnormality or enhancing lesion. . MR/MR head/brain wo/w con IMPRESSION: Low-lying cerebellar tonsils. No acute brain abnormality or enhancing mass. 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 Electronically signed by: Danny Carvajal MD 01/27/2025 02:47 PM EDT
--- OUTSIDE RECORDS SUMMARY | 2025-01-27 14:36 | XMS_ITS | Continuity of Care Document ---
Author Organization [facility] Address [address] [place] [id number] Problems Condition ICD9 code ICD10 code SNOMED code Start Date End Date S tatus Encounter for screening for other metabolic disorders Z13.228 Results No Results Allergies, adverse reactions, alerts No known allergies and adverse reactions Medications No administered medications reported Vital Signs No vital signs reported Social History No smoking Hx information available
== END 2025-01-27 13:43 | disposition home or self-care (01) ==
LOC: HO.MRI 13:42
PROVIDERS: PCP Internal Medicine; Visit Provider Nurse Practitioner Family
DX: G43.109 Migraine with aura, not intractable, without status migrainosus (principal); H53.149 Visual discomfort, unspecified
CPT/HCPCS: 70553; A9585

== ENCOUNTER 2025-07-14 09:29 | Outpatient (AMB) | payer OTHER, SELFPAY ==
[2025-07-14 09:33] VITALS: BP 110/70; BMI 38.2
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
== END 2025-07-14 10:52 | disposition home or self-care (01) ==
LOC: HO.HSMS 09:30
PROVIDERS: PCP Internal Medicine; Visit Provider Nurse Practitioner Family
DX: G43.709 Chronic migraine without aura, not intractable, without status migrainosus (principal); R06.83 Snoring; G25.81 Restless legs syndrome; G47.9 Sleep disorder, unspecified
CPT/HCPCS: 99214

== ENCOUNTER 2025-07-14 09:29 | Outpatient (REF) | payer OTHER, SELFPAY ==
[2025-07-14 13:58] LABS: MANUAL DIFF FLAG NO
[2025-07-14 14:06] LABS: Hematocrit 41.5 % (37.0-47.0); Hemoglobin 13.7 g/dl (12.0-16.0); Imm Gran Abs Auto 0.04 X10*3/uL (0.00-0.03); Imm Gran Pct Auto 0.4 % (0.0-0.4); Lymphocytes Absolute Auto 2.8 X10*3/uL (1.2-4.9); Mean Corpuscular HGB Conc 33.0 g/dl (31.0-35.0); Mean Corpuscular Hemoglobin 28.6 pg (27.0-33.0); Mean Corpuscular Volume 86.6 fL (80.0-98.0); NRBC Abs Auto 0.000 X10*3/uL (0.0-0.012); NRBC Pct Auto 0.0 /100WBC (0.0-0.2); Platelet Count 249 X10*3/uL (160-400); Red Blood Count 4.79 X10*6/uL (4.20-5.50); White Blood Count 9.1 X10*3/uL (4.8-10.8)
[2025-07-14 14:41] LABS: Alanine Aminotransferase 27 U/L (0-31); Albumin Level 4.5 g/dL (3.5-5.0); Alkaline Phosphatase 66 U/L (39-117); Anion Gap 12 (12-20); Aspartate Amino Transferase 28 U/L (5-31); Blood Urea Nitrogen 12 mg/dL (9-16); Calcium 9.4 mg/dL (8.4-10.2); Carbon Dioxide 24 mmol/L (22-29); Chloride 107 mmol/L (96-108); Estimated Glomerular Filt Rate > 60; Potassium 4.1 mmol/L (3.3-5.1); Sodium 139 mmol/L (135-145); Total Protein 7.8 g/dL (6.5-8.0)
[2025-07-18 10:13] LABS: Vitamin D 25-OH, D2 <4 ng/mL; Vitamin D 25-OH, D3 17 ng/mL; Vitamin D 25-OH, Total 17 ng/mL (30-100)
== END 2025-07-14 09:30 | disposition home or self-care (01) ==
LOC: HO.HKASLDS 09:29
PROVIDERS: PCP Internal Medicine; Visit Provider Nurse Practitioner Family
DX: G43.709 Chronic migraine without aura, not intractable, without status migrainosus (principal); G25.81 Restless legs syndrome; G47.9 Sleep disorder, unspecified; E55.9 Vitamin D deficiency, unspecified; D64.9 Anemia, unspecified; R06.83 Snoring; R53.83 Other fatigue
CPT/HCPCS: 36415; 80053; 82306; 85025